=== PATIENT | female | born 1960 | race Caucasian/White ===

== ENCOUNTER 2024-10-16 02:39 | Inpatient (IN) | payer OTHER ==
[~2024-10-16] VITALS: Ht 157.5 cm; Wt 62.4 kg
[2024-10-16] MEDS ORDERED: NS 1,000 ML IV SCH ×2 (03:30→06:45)
[2024-10-16] MEDS ORDERED: FentaNYL Citrate 50 MCG/ML 2 ML Injection IV PRN ×2 (03:30→06:45)
[2024-10-16 03:43] LABS: BASOPHILS ABSOLUTE AUTO 0.37 K/mm3 (0.00-0.23); BASOPHILS PERCENT AUTO 2 % (0-2); EOSINOPHILS ABSOLUTE AUTO 0.37 K/mm3 (0.00-0.68); EOSINOPHILS PERCENT AUTO 2 % (0-6); Hematocrit 51.5 % (33.0-51.0); Hemoglobin 15.1 g/dL (11.5-16.0); IMMATURE GRAN ABSOLUTE AUTO 0.13 K/mm3 (0.00-0.10); IMMATURE GRAN PERCENT AUTO 1 % (0-1); LYMPHOCYTES ABSOLUTE AUTO 1.30 K/mm3 (0.84-5.20); LYMPHOCYTES PERCENT AUTO 8 % (21-46); MONOCYTES ABSOLUTE AUTO 0.92 K/mm3 (0.16-1.47); MONOCYTES PERCENT AUTO 6 % (4-13); Mean Corpuscular HGB Conc 29.3 g/dL (31.5-36.5); Mean Corpuscular Volume 68 fL (80-100); NEUTROPHILS ABSOLUTE AUTO 13.03 K/mm3 (1.96-9.15); NEUTROPHILS PERCENT AUTO 81 % (41-73); NRBC ABSOLUTE 0.00 K/mm3 (0.00-0.02); NRBC Auto 0.0 /100 WBC (0.0-0.2); Platelet Count 426 K/mm3 (150-400); RDW Coefficient Variation 22.8 % (11.7-14.2); RDW Standard Deviation 49.4 fL (35.1-46.3)
[2024-10-16 03:53] LABS: Source, Urine Voided
[2024-10-16 03:56] LABS: Bilirubin, Urine Neg (Neg); Glucose Qualitative, Urine Neg (Neg); Ketones, Urine Neg (Neg); Leukocyte Esterase, Urine 1+ (Neg); Protein, Urine 1+ (Neg); Specific Gravity, Urine 1.025 (1.003-1.022); Urobilinogen, Urine NORM (Normal)
[2024-10-16 04:07] LABS: Alanine Aminotransfer (ALT/SGP 18.0 U/L (12-78); Albumin, Blood 3.6 g/dL (3.4-5.0); Albumin/Globulin Ratio 1.0 (0.8-1.8); Anion Gap 10.0 mmol/L (3-11); Aspartate Aminotrans (AST/SGOT 13.0 U/L (12-37); Bilirubin, Total 0.7 mg/dL (0.1-1.0); Blood Urea Nitrogen 14.0 mg/dL (8-24); CO2, Blood 23.0 mmol/L (21-32); Calcium, Blood 9.4 mg/dL (8.5-10.1); Chloride, Blood 107.0 mmol/L (98-108); Creatinine, Blood 0.92 mg/dL (0.40-1.00); Globulin, Blood 3.5 g/dL (2.2-4.0); Glucose, Blood 135.0 mg/dL (70-99); Potassium, Blood 4.1 mmol/L (3.5-5.5); Sodium, Blood 136.0 mmol/L (136-145); Total Protein, Blood 7.1 g/dL (6.4-8.2)
[2024-10-16 04:13] LABS: Color, Urine Yellow (P-Yellow)
[2024-10-16 04:14] LABS: White Blood Cells, Urine 0-2 /hpf (0-5)
[2024-10-16 04:15] LABS: Red Blood Cells, Urine TNTC /hpf (0-2)
[2024-10-16] MEDS ORDERED: Ondansetron HCl 2 MG / ML 2ML Vial IV PRN (06:45)
[2024-10-16 09:54] VITALS: BP 131/92
[2024-10-16] MEDS ORDERED: Hydroxyurea500 MG PO (10:02)
[2024-10-16] MEDS ORDERED: TAMS.4ER PO (10:03)
--- NOTE | 2024-10-16 11:25 | NUR ---
PT ARRIVED TO ROOM AT 0945 INDEPENDENT AOX4. PT ABLE TO MAKE NEEDS KNOWN. UPON ARRIVAL PT DENIED NEED FOR PAIN MEDICATION. ALL URINE IS TO BE STAINDED. PT SETTLED INTO ROOM NO DISTRESS NOTED.
[2024-10-16] MEDS ORDERED: OxyCODONE 10/Acetamin 325 TABLET PO PRN (11:45)
[2024-10-16 15:22] VITALS: BP 123/92
--- NOTE | 2024-10-16 16:19 | NUR ---
PT HAS BEEN AOX4 AND COOPERATIVE OF CARE. PT HAS BEEN GOOD ABOUT NOTIFYING WHEN THERE IS URINE TO STRAIN. NO STONES SEEN THIS SHIFT. INDEPENDENT IN ROOM CALL LIGHT IN REACH WILL CONTINUE TO MONITOR.
[2024-10-16 19:54] VITALS: BP 125/90
[2024-10-17] VITALS (10 sets, daily range): BP systolic 108–138; BP diastolic 46–92
--- NOTE | 2024-10-17 04:24 | NUR ---
SHIFT SUMMARY 63 YR F ADMITTED ON 10/16/24. FULL CODE. NO ACUTE CHANGES THIS SHIFT. PT MEDICATED FOR PAIN PER EMAR WITH VERY GOOD EFFECT. SHE STATES HER PAIN LEVEL IS STAYING VERY WITH TAKING THE PAIN MEDS Q4 RX'D. URINE CONTINUES TO BE STRAINED WITH NO STONES DETECTED YET. PT APPEARS TO BE RESTING COMFORTABLY AT THIS TIME. BED IN LOW POSITION AND CALL LIGHT IN REACH.
[2024-10-17 06:00] LABS: BASOPHILS ABSOLUTE AUTO 0.31 K/mm3 (0.00-0.23); BASOPHILS PERCENT AUTO 2 % (0-2); EOSINOPHILS ABSOLUTE AUTO 0.56 K/mm3 (0.00-0.68); EOSINOPHILS PERCENT AUTO 4 % (0-6); Hematocrit 50.4 % (33.0-51.0); Hemoglobin 14.4 g/dL (11.5-16.0); IMMATURE GRAN ABSOLUTE AUTO 0.16 K/mm3 (0.00-0.10); IMMATURE GRAN PERCENT AUTO 1 % (0-1); LYMPHOCYTES ABSOLUTE AUTO 2.06 K/mm3 (0.84-5.20); LYMPHOCYTES PERCENT AUTO 15 % (21-46); MONOCYTES ABSOLUTE AUTO 0.69 K/mm3 (0.16-1.47); MONOCYTES PERCENT AUTO 5 % (4-13); Mean Corpuscular HGB Conc 28.6 g/dL (31.5-36.5); Mean Corpuscular Volume 69 fL (80-100); NEUTROPHILS ABSOLUTE AUTO 10.10 K/mm3 (1.96-9.15); NEUTROPHILS PERCENT AUTO 73 % (41-73); NRBC ABSOLUTE 0.00 K/mm3 (0.00-0.02); NRBC Auto 0.0 /100 WBC (0.0-0.2); Platelet Count 372 K/mm3 (150-400); RDW Coefficient Variation 22.8 % (11.7-14.2); RDW Standard Deviation 51.1 fL (35.1-46.3)
[2024-10-17 06:16] LABS: Alanine Aminotransfer (ALT/SGP 15.0 U/L (12-78); Albumin, Blood 3.1 g/dL (3.4-5.0); Albumin/Globulin Ratio 1.0 (0.8-1.8); Anion Gap 7.0 mmol/L (3-11); Aspartate Aminotrans (AST/SGOT 15.0 U/L (12-37); Bilirubin, Total 0.5 mg/dL (0.1-1.0); Blood Urea Nitrogen 9.0 mg/dL (8-24); CO2, Blood 25.0 mmol/L (21-32); Calcium, Blood 8.7 mg/dL (8.5-10.1); Chloride, Blood 108.0 mmol/L (98-108); Creatinine, Blood 0.78 mg/dL (0.40-1.00); Globulin, Blood 3.1 g/dL (2.2-4.0); Glucose, Blood 105.0 mg/dL (70-99); Potassium, Blood 3.8 mmol/L (3.5-5.5); Sodium, Blood 136.0 mmol/L (136-145); Total Protein, Blood 6.2 g/dL (6.4-8.2)
--- NOTE | 2024-10-17 14:30 | NUR ---
PATIENT TRANSPORTED TO [facility] VIA GURNEY. Pre-Op teaching done. Pt verbalizes understanding. Patient confirms NPO status and agrees with scheduled surgery.
[2024-10-17] MEDS ORDERED: CefOXitin Sodium 2,000 MG in NS 100 ML IV ONE (15:20)
[2024-10-17] MEDS ORDERED: FentaNYL Citrate 50 MCG/ML 2 ML Injection ONE (15:32)
[2024-10-17] MEDS ORDERED: Dexamethasone Sod Phos 10 MG/ML 1ML VIAL ONE (15:40)
[2024-10-17] MEDS ORDERED: Ondansetron HCl 2 MG / ML 2ML Vial ONE (15:55)
[2024-10-17] MEDS ORDERED: Sugammadex Sodium 200 MG/2ML SDV (100 MG/ML) ONE (15:55)
[2024-10-17] MEDS ORDERED: Ketorolac Tromethamine 30mg Vial ONE (16:04)
[2024-10-17] MEDS ORDERED: HYDROmorphone HCl/Pf 1MG SYR IV PRN (16:05)
[2024-10-17] MEDS ORDERED: FentaNYL Citrate 50 MCG/ML 2 ML Injection IV PRN (16:10)
[2024-10-17] MEDS ORDERED: Ondansetron HCl 2 MG / ML 2ML Vial IV PRN (16:10)
--- NOTE | 2024-10-17 17:24 | NUR ---
PATIENT INDEPENDENT IN ROOM, NPO FOR PROCEDURE THIS AM. PATIENT WENT TO PROCEDURE TO REMOVE STONE, RETURNED TO ROOM AWAKE AND WITHOUT COMPLAINTS OF PAIN. PATIENT EATING. CALL LIGHT WITHIN REACH
--- NOTE | 2024-10-18 04:55 | NUR ---
SHIFT SUMMARY 63 YR F ADMITTED ON 10/17/24. FULL CODE. NO ACUTE CHANGES THIS SHIFT. PT MEDICATED ONCE THIS SHIFT FOR POST OP PAIN. SHE HAS SLEPT THROUGH THE NIGHT WITH NO OTHER C/O PAIN OR DISCOMFORT. PLAN IS FOR DISCHARGE IN THE A.M. BED IN LOW POAITION AND CALL LIGHT IN REACH. WILL REPORT TO DAYSHIFT LISA.
[2024-10-18 05:23] VITALS: BP 140/94
[2024-10-18 06:46] LABS: BASOPHILS ABSOLUTE AUTO 0.14 K/mm3 (0.00-0.23); BASOPHILS PERCENT AUTO 1 % (0-2); EOSINOPHILS ABSOLUTE AUTO 0.12 K/mm3 (0.00-0.68); EOSINOPHILS PERCENT AUTO 1 % (0-6); Hematocrit 50.3 % (33.0-51.0); Hemoglobin 14.3 g/dL (11.5-16.0); IMMATURE GRAN ABSOLUTE AUTO 0.11 K/mm3 (0.00-0.10); IMMATURE GRAN PERCENT AUTO 1 % (0-1); LYMPHOCYTES ABSOLUTE AUTO 1.40 K/mm3 (0.84-5.20); LYMPHOCYTES PERCENT AUTO 9 % (21-46); MONOCYTES ABSOLUTE AUTO 0.53 K/mm3 (0.16-1.47); MONOCYTES PERCENT AUTO 3 % (4-13); Mean Corpuscular HGB Conc 28.4 g/dL (31.5-36.5); Mean Corpuscular Volume 68 fL (80-100); NEUTROPHILS ABSOLUTE AUTO 14.21 K/mm3 (1.96-9.15); NEUTROPHILS PERCENT AUTO 86 % (41-73); NRBC ABSOLUTE 0.00 K/mm3 (0.00-0.02); NRBC Auto 0.0 /100 WBC (0.0-0.2); Platelet Count 383 K/mm3 (150-400); RDW Coefficient Variation 22.4 % (11.7-14.2); RDW Standard Deviation 49.1 fL (35.1-46.3)
[2024-10-18 07:13] LABS: Anion Gap 10.0 mmol/L (3-11); Blood Urea Nitrogen 20.0 mg/dL (8-24); CO2, Blood 24.0 mmol/L (21-32); Calcium, Blood 8.9 mg/dL (8.5-10.1); Chloride, Blood 106.0 mmol/L (98-108); Creatinine, Blood 0.89 mg/dL (0.40-1.00); Glucose, Blood 166.0 mg/dL (70-99); Potassium, Blood 4.4 mmol/L (3.5-5.5); Sodium, Blood 136.0 mmol/L (136-145)
[2024-10-18 07:45] VITALS: BP 130/89
--- NOTE | 2024-10-18 10:13 | NUR ---
NOTE: PT NOTED TO HAVE LOWER ABD PAIN AND LOWER BACK PAIN, MEDICATED PER THE EMAR WITH IV PAIN MEDS WITH SOME RELIEF AT FIRST. NOTED PT IS URINATING BRIGHT RED BLOOD, DR. KRUEGER NOTIFED. ORAL PAIN MED TO BE GIVEN AND BOWEL CARE. STONE WAS REMOVED AND DR. KRUEGER STATES THE PT MAY BE HAVING SOME RESIDUAL BLEEDING POST PROCEDURE.
[2024-10-18] MEDS ORDERED: Polyethylene Glycol 3350 17 gm PO SCH (11:00)
[2024-10-18] MEDS ORDERED: PERCOCET 10-321 EA13 PO (13:57)
[2024-10-18] MEDS ORDERED: MIRALAX17 GM PO (13:58)
[2024-10-18] MEDS ORDERED: SENN187 PO (13:59)
--- NOTE | 2024-10-18 15:32 | NUR ---
DISCHARGE NOTE PT DISCHARGED TO HOME, PICKED UP BY HER GRANDDAUGHTER. IV REMOVED. HARD SCRIPT PROVIDED. DISCHARGE EDUCATION AND INFORMATION REVIEWED WITH THE PT. MEDICATIONS FAXED TO THE PHARMACY OF HER CHOICE.
== END 2024-10-18 15:37 | disposition home or self-care (01) | DRG 661 ==
LOC: ER 02:39 → MEDS 02:40 → ENPENDDIS 10-18 13:14 → MEDS 10-18 15:37
PROVIDERS: Emergency Medicine; Student in an Organized Health Care Education/Training Program; Urology; ADMIT Internal Medicine
PROC: BT1D1ZZ Fluoroscopy of Right Kidney, Ureter and Bladder using Low Osmolar Contrast (ICD-10-PCS; 2024-10-17)
PROC: 0TF68ZZ Fragmentation in Right Ureter, Via Natural or Artificial Opening Endoscopic (ICD-10-PCS; 2024-10-17)
PROC: 0T768DZ Dilation of Right Ureter with Intraluminal Device, Via Natural or Artificial Opening Endoscopic (ICD-10-PCS; principal; 2024-10-17 15:00)
DX: N13.2 Hydronephrosis with renal and ureteral calculous obstruction (principal); E86.0 Dehydration; G31.01 Pick's disease; R31.29 Other microscopic hematuria; F17.210 Nicotine dependence, cigarettes, uncomplicated; D45 Polycythemia vera; D72.829 Elevated white blood cell count, unspecified; Z85.6 Personal history of leukemia; Z90.49 Acquired absence of other specified parts of digestive tract; Z88.2 Allergy status to sulfonamides; Z88.8 Allergy status to other drugs, medicaments and biological substances
CPT/HCPCS: 36415; 74177; 80048; 80053; 81001; 83880; 85025; 87086; 96361; 96374-59; 96376; 99285-25; A9270; C1758; C1769; C1894; C2617; G0378; J0694; J1100; J1885; J2405; J2704; J3010; J7030; J7120; Q9967